=== PATIENT | female | born 1995 | race Caucasian/White ===

== ENCOUNTER 2021-03-20 17:19 | Emergency (ER) | payer OTHER ==
[~2021-03-20] VITALS: Ht 157.5 cm; Wt 46.6 kg
[2021-03-20 17:20] VITALS: BP 109/70
[2021-03-20] MEDS ORDERED: oxyCODONE/APAP 5/325 1 TAB TABLET PO ONE (18:00)
[2021-03-20] MEDS ORDERED: CEPHALEXIN 250 MG CAPSULE PO ONE (18:00)
--- NOTE | 2021-03-20 18:04 | PHYS DOC ---
Past History Past Surgical History: No Surgical History Alcohol Use: Occasionally General Adult EDM: Chief Complaint: DENTAL PROBLEM HPI: HPI: ".. I got his tooth.. it been bother me a while.. but then it stopped ... but to day it really started up again.." Patient is a 25 year old female who presents with above hx and complaints of severe dental pain in area of tooth 30. No trismus. Patient does have area of previous spontaneous drainage of abscess in this area. Does have some facial cellulitis. Does have adenopathy at the angle of jaw.. Pt. has had no COVID, Pneumovax or Flu vaccinations. No hx of immunosuppression . Does Vape. Review of Systems: Review of Systems: Constitutional: Denies fever or chills Eyes: Denies change in visual acuity HENT: Complains of dental pain Respiratory: Denies cough or shortness of breath Cardiovascular: Denies chest pain or edema GI: Denies abdominal pain, nausea, vomiting, bloody stools or diarrhea : Denies dysuria Musculoskeletal: Denies back pain or joint pain Integument: Denies rash Neurologic: Denies headache, focal weakness or sensory changes Endocrine: Denies polyuria or polydipsia Lymphatic: Denies swollen glands Psychiatric: Denies depression or anxiety Family History: Family History: Noncontributory presentation. Current Medications: Current Meds: Current Medications Medications (Trade) Dose Ordered Sig/Pilar Start Time Stop Time Status Last Admin Dose Admin Cephalexin HCl (Keflex) 500 mg 1X ONCE 03/20/21 18:00 03/20/21 18:01 UNV Oxycodone/ Acetaminophen (Percocet 5/325) 2 tab 1X ONCE 03/20/21 18:00 03/20/21 18:01 UNV Allergies: Allergies: Allergies Coded Allergies Type Severity Reaction Last Updated Verified Penicillins Allergy Unknown 03/20/21 Yes Physical Exam: PE: Constitutional:in acute distress, non-toxic appearance. [] HENT: Normocephalic, atraumatic, bilateral external ears normal, oropharynx moist, no oral exudates, nose normal. Dental pain in area of tooth 30 Eyes: PERRLA, EOMI, conjunctiva normal, no discharge. [] Neck: Normal range of motion, no tenderness, supple, no stridor. [] Cardiovascular:Heart rate regular rhythm, no murmur [] Lungs & Thorax: Bilateral breath sounds equal apex scattered wheezes auscultation [] Abdomen: Bowel sounds normal, soft, no tenderness, no masses, no pulsatile masses. [] Skin: Warm, dry, no erythema, no rash. [] Back: No tenderness, no CVA tenderness. [] Extremities: No tenderness, no cyanosis, no clubbing, ROM intact, no edema. [] Neurologic: Alert and oriented X 3, normal motor function, normal sensory function, no focal deficits noted. [] Psychologic: Affect anxious, judgement normal, mood normal. [] Current Patient Data: Vital Signs: Vital Signs Date Time Temp Pulse Resp B/P (MAP) Pulse Ox O2 Delivery O2 Flow Rate FiO2 03/20/21 17:20 98.3 90 14 109/70 (83) 99 Room Air EKG: EKG: [] Radiology/Procedures: Radiology/Procedures: [] Heart Score: C/O Chest Pain: N/A Risk Factors: Risk Factors: DM, Current or recent (<one month) smoker, HTN, HLP, family history of CAD, obesity. Risk Scores: Score 0 - 3: 2.5% MACE over next 6 weeks - Discharge Home Score 4 - 6: 20.3% MACE over next 6 weeks - Admit for Clinical Observation Score 7 - 10: 72.7% MACE over next 6 weeks - Early Invasive Strategies Course & Med Decision Making: Course & Med Decision Making Pertinent Labs and Imaging studies reviewed. (See chart for details) Patient advised must follow-up with dentist. Nothing given here tonight will fix his underlying problem of the dental decay and infection. Take Keflex 5 00mg 3 times a day. Take Tylenol ibuprofen for pain. Return if any concerns. Impression: 1. Dental pain 2. Dental infection [] Dragon Disclaimer: Dragon Disclaimer: This electronic medical record was generated, in whole or in part, using a voice recognition dictation system. Departure Departure: Referrals: PCP,NO (PCP) Scripts Cephalexin (KEFLEX) 500 Mg Capsule 1 CAP PO TID for dental infection, #30 CAP Prov: RUSLAN PALAFOX MD 03/20/21 Geovany Disclaimer This chart was dictated in whole or in part using Voice Recognition software in a busy, high-work load, and often noisy Emergency Department environment. It may contain unintended and wholly unrecognized errors or omissions. RUSLAN PALAFOX MD Mar 20, 2021 18:04
[2021-03-20] MEDS ORDERED: CEPH500C PO (18:10)
[2021-03-20] MEDS ORDERED: CEPHALEXIN 250 MG CAPSULE ONE (18:29)
== END 2021-03-20 18:34 | disposition home or self-care (01) ==
LOC: ER 17:19
DX: K04.7 Periapical abscess without sinus (principal); Z88.0 Allergy status to penicillin
CPT/HCPCS: 99283